=== PATIENT | female | born 1925 | race Caucasian/White ===

== ENCOUNTER 2016-06-20 09:53 | Emergency (ER) | payer MEDICARE, OTHER ==
[~2016-06-20 09:53] MED LIST: ALBUTEROL S3 ML/VIAL IH; ARICEPT5 MG PO; ASPIR 8181 MG PO; B-12500 MCG PO; COLACE100 MG PO; DAILY VITE1 EACH PO; DULCOLAX10 MG RC; FLEET ENEMA133 ML RC; LASIX20 MG PO; LEVAQUIN750 MG PO; OMEPRAZOLE20 MG PO; SENNA8.6 MG PO; TESSALON PERLE100 MG PO; TOPROL XL25 MG PO; TYLENOL EXTRA500 MG PO
[2016-06-26] MEDS ORDERED: FLEET ENEMA133 ML RC (09:05)
[2016-06-26] MEDS ORDERED: TESSALON PERLE100 MG PO (09:06)
[2016-06-26] MEDS ORDERED: TOPROL XL50 MG PO (09:06)
[2016-06-26] MEDS ORDERED: B-12500 MCG PO (09:06)
[2016-06-26] MEDS ORDERED: OMEPRAZOLE20 MG PO (09:06)
[2016-06-26] MEDS ORDERED: TYLENOL EXTRA500 MG PO (09:06)
[2016-06-26] MEDS ORDERED: SENNA8.6 MG PO (09:08)
[2016-06-26] MEDS ORDERED: ASPIRIN EC81 MG PO (09:09)
[2016-06-26] MEDS ORDERED: DULCOLAX10 MG RC (09:09)
[2016-06-26] MEDS ORDERED: COLACE100 MG PO (09:10)
[2016-06-26] MEDS ORDERED: ARTHRICREAM85 GM TOP (09:13)
[2016-06-26] MEDS ORDERED: ZOLOFT50 MG PO (09:14)
[2016-06-26] MEDS ORDERED: DUODERM1 EACH TOP (09:14)
[2016-06-26] MEDS ORDERED: ACID GONE ANTA355 ML PO (09:15)
[2016-06-26] MEDS ORDERED: ACETAMINOPHEN325 MG PO (09:16)
[2016-06-26] MEDS ORDERED: ZOFRAN4 MG PO (09:16)
[2016-06-26] MEDS ORDERED: JUVEN PACKET1 EACH PO (09:17)
[2016-06-26] MEDS ORDERED: NEPHRO-VITE RX1 EACH PO (09:17)
[2016-06-26] MEDS ORDERED: DULCOLAX5 MG PO (09:17)
[2016-06-26] MEDS ORDERED: CULTURELLE1 EACH PO (09:17)
[2016-06-26] MEDS ORDERED: AUGMENTIN 500-1 EACH PO (09:18)
== END 2016-06-20 14:20 | disposition critical access hospital (66) ==
LOC: ER 09:53
DX: J18.9 Pneumonia, unspecified organism (principal); L89.152 Pressure ulcer of sacral region, stage 2; F32.9 Major depressive disorder, single episode, unspecified; I48.91 Unspecified atrial fibrillation; K21.9 Gastro-esophageal reflux disease without esophagitis; E11.22 Type 2 diabetes mellitus with diabetic chronic kidney disease; I12.9 Hypertensive chronic kidney disease with stage 1 through stage 4 chronic kidney disease, or unspecified chronic kidney disease; N18.3 Chronic kidney disease, stage 3 (moderate); D63.1 Anemia in chronic kidney disease; Z88.2 Allergy status to sulfonamides; Z87.440 Personal history of urinary (tract) infections; Z66 Do not resuscitate
CPT/HCPCS: 36415; 84145; 87502; 96365; 96375; J3370

== ENCOUNTER 2016-06-20 09:53 | Inpatient (IN) | payer MEDICARE, OTHER ==
--- NOTE | 2016-06-22 17:26 | NUR ---
1544: REPORT GIVEN TO KHADIJAH PONCE RN [facility]
--- NOTE | 2016-06-22 17:27 | NUR ---
1605: PT TRANSPORTED TO [facility] VIA WHEELCHAIR. PT ALERT TO SELF AND NAME. NO PAIN OR DISTRESS NOTED OR VERBALIZED
--- NOTE | 2016-06-25 12:16 | NUR ---
REPORT CALLED TO ROBINSON AT [facility]. INFORMED OF NEW CHANGES - DIEST AND ABX. IV REMOVED AND PATIENT TRANSPORTED OFF FLOOR VIA EMS.
[2016-06-26] MEDS ORDERED: FLEET ENEMA133 ML RC (09:05)
[2016-06-26] MEDS ORDERED: TYLENOL EXTRA500 MG PO (09:06)
[2016-06-26] MEDS ORDERED: OMEPRAZOLE20 MG PO (09:06)
[2016-06-26] MEDS ORDERED: TOPROL XL50 MG PO (09:06)
[2016-06-26] MEDS ORDERED: TESSALON PERLE100 MG PO (09:06)
[2016-06-26] MEDS ORDERED: B-12500 MCG PO (09:06)
[2016-06-26] MEDS ORDERED: SENNA8.6 MG PO (09:08)
[2016-06-26] MEDS ORDERED: DULCOLAX10 MG RC (09:09)
[2016-06-26] MEDS ORDERED: ASPIRIN EC81 MG PO (09:09)
[2016-06-26] MEDS ORDERED: COLACE100 MG PO (09:10)
[2016-06-26] MEDS ORDERED: ARTHRICREAM85 GM TOP (09:13)
[2016-06-26] MEDS ORDERED: ZOLOFT50 MG PO (09:14)
[2016-06-26] MEDS ORDERED: DUODERM1 EACH TOP (09:14)
[2016-06-26] MEDS ORDERED: ACID GONE ANTA355 ML PO (09:15)
[2016-06-26] MEDS ORDERED: ZOFRAN4 MG PO (09:16)
[2016-06-26] MEDS ORDERED: ACETAMINOPHEN325 MG PO (09:16)
[2016-06-26] MEDS ORDERED: DULCOLAX5 MG PO (09:17)
[2016-06-26] MEDS ORDERED: JUVEN PACKET1 EACH PO (09:17)
[2016-06-26] MEDS ORDERED: CULTURELLE1 EACH PO (09:17)
[2016-06-26] MEDS ORDERED: NEPHRO-VITE RX1 EACH PO (09:17)
[2016-06-26] MEDS ORDERED: AUGMENTIN 500-1 EACH PO (09:18)
== END 2016-06-25 12:15 | DRG 177 ==
LOC: ER 09:53 → ICU 14:21 → MED 06-22 16:05
PROVIDERS: ADMIT Internal Medicine
DX: J69.0 Pneumonitis due to inhalation of food and vomit (principal); J96.01 Acute respiratory failure with hypoxia; J96.02 Acute respiratory failure with hypercapnia; E87.0 Hyperosmolality and hypernatremia; N18.4 Chronic kidney disease, stage 4 (severe); E46 Unspecified protein-calorie malnutrition; Z68.1 Body mass index [BMI] 19.9 or less, adult; N17.9 Acute kidney failure, unspecified; Y95 Nosocomial condition; R13.10 Dysphagia, unspecified; Z51.5 Encounter for palliative care; I48.0 Paroxysmal atrial fibrillation; I25.10 Atherosclerotic heart disease of native coronary artery without angina pectoris; Z95.5 Presence of coronary angioplasty implant and graft; F03.90 Unspecified dementia, unspecified severity, without behavioral disturbance, psychotic disturbance, mood disturbance, and anxiety; M19.90 Unspecified osteoarthritis, unspecified site; L89.152 Pressure ulcer of sacral region, stage 2; Z66 Do not resuscitate; Z87.442 Personal history of urinary calculi; F41.9 Anxiety disorder, unspecified; F32.9 Major depressive disorder, single episode, unspecified; Z87.440 Personal history of urinary (tract) infections; Z79.899 Other long term (current) drug therapy; Z90.49 Acquired absence of other specified parts of digestive tract; Z87.891 Personal history of nicotine dependence; Z82.49 Family history of ischemic heart disease and other diseases of the circulatory system; I95.9 Hypotension, unspecified; E87.6 Hypokalemia
CPT/HCPCS: 36415; 84145; 87502; 92610; 92611; 94664; 97162-GP; 97166; J1644; J3370; J7050